=== PATIENT | male | born 1960 | race Caucasian/White ===

== ENCOUNTER 2021-10-12 10:51 | Outpatient (CLI) | payer BC | END 2021-10-12 10:52 | disposition home or self-care (01) | LOC: CSHCT 10:51 | PROVIDERS: ATTEND Family Medicine Sports Medicine | DX: R10.31 Right lower quadrant pain (principal); K35.80 Unspecified acute appendicitis | CPT/HCPCS: 74176 ==

== ENCOUNTER 2021-10-12 11:53 | Emergency (ER) | payer BC ==
[2021-10-12] MEDS ORDERED: Piperacillin/Tazobactam 4.5 GM VIAL ONE (12:38)
[2021-10-12 12:52] LABS: #Eosinphils 0.1 10x3/uL (0.0-0.5); #Monocytes 0.5 10x3/uL (0.0-1.1); %Basophils 0.4 % (0.0-2.0); %Lymphocytes 20.1 % (18.0-47.0); %Neutrophils 71.4 % (40.0-75.0); Hemoglobin 15.4 g/dL (13.5-17.5); Mean Corpuscular HGB CONC 34.3 g/dL (32.0-36.0); Mean Corpuscular Hemoglobin 30.4 pg (27.0-33.0); Mean Corpuscular Volume 88.7 fl (81.2-95.1); Mean Platelet Volume 9.6 fl (7.4-10.4); Platelet Count 263 10x3/uL (150-450); RBC Distribution Width 11.7 % (11.5-14.5); Red Blood Cell (RBC) Count 5.06 10x6/uL (4.32-5.72)
[2021-10-12 13:07] LABS: ALT (SGPT) 19 U/L (8-55); AST (SGOT) 15 U/L (5-34); Albumin 4.5 g/dL (3.4-4.8); Alkaline Phosphatase 56 U/L (40-110); Anion Gap 14 mmol/L (10-20); BUN (Urea Nitrogen) 15 mg/dL (8.4-25.7); Calc. Creatinine Clearance 0 mL/min (70-130); Calcium 9.7 mg/dL (7.8-10.44); Carbon Dioxide 28 mmol/L (23-31); Chloride 98 mmol/L (98-107); Globulin 2.6 g/dL (2.4-3.5); Glucose 114 mg/dL (80-115); Potassium 4.4 mmol/L (3.5-5.1); Protein, Total 7.1 g/dL (5.8-8.1); Sodium 136 mmol/L (136-145)
[2021-10-12 14:28] LABS: Bilirubin Neg (Negative); Blood, Urine 10 (Negative); Clarity Clear (Clear); Glucose, Urine (Dipstick) Normal (Negative); Ketone, Urine Negative (Negative); Leukocyte Negative (Negative); Nitrite Negative (Negative); Protein, Urine (Dipstick) Negative (Neg-Trace); Urobilinogen Normal mg/dL (Less than 2)
[2021-10-12 14:33] LABS: Bacteria/HPF None Seen HPF (None Seen); Squamous Epithelial 0-3 HPF (0-3); WBC/HPF 0-3 HPF (0-3)
== END 2021-10-12 14:53 | disposition home or self-care (01) ==
LOC: CSHERS 11:53
DX: R91.1 Solitary pulmonary nodule (principal); R10.31 Right lower quadrant pain; K35.80 Unspecified acute appendicitis
CPT/HCPCS: 74176; 80053; 81003; 81015; 85025; 96365; 96366; J2543

== ENCOUNTER 2022-09-18 14:33 | Outpatient (CLI) | payer BC | END 2022-09-18 14:34 | disposition home or self-care (01) | LOC: CSHCT 14:33 | PROVIDERS: ATTEND Family Medicine Sports Medicine | DX: R91.1 Solitary pulmonary nodule (principal); R91.8 Other nonspecific abnormal finding of lung field | CPT/HCPCS: 71250 ==

== ENCOUNTER 2024-01-01 10:22 | Outpatient (CLI) | payer BC | END 2024-01-01 10:23 | disposition home or self-care (01) | LOC: CSHCT 10:22 | PROVIDERS: ATTEND Family Medicine Sports Medicine | DX: R91.1 Solitary pulmonary nodule (principal); R91.8 Other nonspecific abnormal finding of lung field | CPT/HCPCS: 71250 ==